=== PATIENT | male | born 1960 | race Caucasian/White ===

== ENCOUNTER 2016-08-30 17:37 | Emergency (ER) | payer MEDICARE, BC ==
[~2016-08-30] VITALS: Ht 172.7 cm; Wt 69.0 kg
[~2016-08-30 17:37] MED LIST: AMIO200T2 PO; ASPI-557 PO; ATOR40TA64 PO; CLOP75TA33 PO; LISI2.5T2 PO; METH10TA4 PO; METO-482 PO; MULT-587 PO; PANT40TA27 PO; SULI150T PO
[2016-08-30 17:38] VITALS: BP 155/91; PULSE 77; RESP 16; TEMP 98.1; O2SAT 98; Ht 172.7 cm; Wt 69.0 kg
--- OUTSIDE RECORDS SUMMARY | 2016-08-30 17:43 | XMS REPORT | Continuity of Care Document ---
Author Author [facility] Organization [facility] Address Unknown Phone Unavailable Support Name Relationship Address Phone BETHANY ARANDA MD Caregiver [address] [place] [address] [place] [address] Unavailable MARTÍNEZ RANDHAWA Next Of Kin [address] [facility] [address] [place] [address] Insurance Providers Guarantor Gia Randhawa Jr Address [address] [facility] [address] [place] [address] Email DENIED/NO TO [facility] Policy Number [id number] Subscriber's Name Gia Randhawa Jr Relationship 18 Self Chief Complaint and Reason for Visit Chief Complaint GI Bleed Reason for Visit [id number] Problems Active Problems Medical Problem Onset Date Status Acute upper GI bleed Unknown Acute Medications Current Home Medications Medication Dose Units Route Directions Days Qty Instructions Start Date Aspirin 325 Mg Tablet 325 Mg Oral Daily 12/29/15 Methylphenidate Hcl (Ritalin) 10 Mg Tablet 10 Mg Oral As Needed 12/29/15 Multivitamin (Men's Multi-Vitamin) 1 Each Tablet 1 Tab Oral Daily 12/29/15 Sulindac 150 Mg Tablet 150 Mg Oral As Needed 12/29/15 Social History Social History Problem Response Recorded Date/Time Onset Date Status Tobacco Usage smoke 12/29/2015 11:02am Not Applicable Not Applicable Query Response Start Date Stop Date Smoking Status Current every day smoker Hospital Discharge Instructions No hospital discharge instructions. Plan of Care Discharge Date 12/29/15 12:59pm Disposition 43 TO [facility] Condition at Discharge Stable Instructions/Education Provided Gastrointestinal Bleeding Prescriptions See Medication Section Functional Status No functional status results. Allergies, Adverse Reactions, Alerts Allergen Type Severity Reaction Status Last Updated Cephalexin Allergy Unknown Active 12/29/15 Immunizations No immunization records. Vital Signs Acute Vital Signs Vital Response Date/Time Temperature (Fahrenheit) 97.9 deg F (96.8 - 99.1) 12/29/2015 12:59pm Temperature (Calculated Celsius) 36.38162 degrees C (36.0 - 37.3) 12/29/2015 12:59pm Pulse Rate (adult) 92 bpm (60 - 100) 12/29/2015 12:59pm Respiratory Rate 14 breaths/min (10 - 20) 12/29/2015 12:59pm O2 Sat by Pulse Oximetry 97 % (90 - 100) 12/29/2015 12:59pm Blood Pressure 123/78 mm Hg 12/29/2015 12:59pm Height (Feet) 5 feet 12/29/2015 10:12am Height (Inches) 8.00 inches 12/29/2015 10:12am Weight (Kilograms) 98.500 kg 12/29/2015 10:12am Body Mass Index (BMI) 33.0 12/29/2015 10:12am Results Laboratory Results Test Name Result Units Flags Reference Collection Date/Time Result Date/ Time Comments White Blood Count 14.8 T/MM3 H 4.5-11.0 12/29/2015 10:56am 12/29/2015 11 :06am Red Blood Count 4.62 M/MM3 4.50-5.90 12/29/2015 10:56am 12/29/2015 11: 06am Hemoglobin 14.2 GM/DL 13.5-17.5 12/29/2015 10:56am 12/29/2015 11:06am Hematocrit 42.9 % 41-53 12/29/2015 10:56am 12/29/2015 11:06am Mean Corpuscular Volume 92.9 UM3 80-100 12/29/2015 10:56am 12/29/2015 11:06am Mean Corpuscular Hemoglobin 30.7 UUG 26-34 12/29/2015 10:56am 2015 11:06am Mean Corpuscular Hemoglobin Concent 33.1 GM/DL 31-37 12/29/2015 10:56am 12/29/2015 11:06am RDW Standard Deviation 45.8 FL 36.9-50.2 12/29/2015 10:56am 12/29/2015 11:06am Platelet Count 371 T/MM3 130-400 12/29/2015 10:56am 12/29/2015 11:06am Mean Platelet Volume 11.0 UM3 9.4-12.4 12/29/2015 10:56am 12/29/2015 11 :06am Neutrophils (%) (Auto) 76.8 % H 33-66 12/29/2015 10:56am 12/29/2015 11: 06am Lymphocytes (%) (Auto) 14.2 % L 23-45 12/29/2015 10:56am 12/29/2015 11: 06am Monocytes (%) (Auto) 5.3 % 0-9.0 12/29/2015 10:56am 12/29/2015 11:06am Eosinophils (%) (Auto) 2.9 % 0-4 12/29/2015 10:56am 12/29/2015 11:06am Basophils (%) (Auto) 0.5 % 0-2 12/29/2015 10:56am 12/29/2015 11:06am Immature Granulocyte % (Auto) 0.3 % 0.0-0.5 12/29/2015 10:56am 2015 11:06am Absolute Neutrophils (auto) 11.4 T/MM3 H 1.8-7.7 12/29/2015 10:56am 11:06am Absolute Lymphocytes (auto) 2.1 T/MM3 1-4.8 12/29/2015 10:56am 2015 11:06am Absolute Monocytes (auto) 0.8 T/MM3 0-0.8 12/29/2015 10:56am 2015 11:06am Absolute Eosinophils (auto) 0.4 T/MM3 0-0.5 12/29/2015 10:56am 2015 11:06am Absolute Basophils (auto) 0.1 T/MM3 0-0.2 12/29/2015 10:56am 2015 11:06am Absolute Immature Granulocyte (auto 0.05 T/MM3 H 0.00-0.03 12/29/2015 10: 56am 12/29/2015 11:06am Prothromb Time International Ratio 0.95 L 0.99-1.21 12/29/2015 10:56am 12/29/2015 11:14am THERAPUTIC RANGE=2.00-3.00 FOR ANTI-THROMBOSIS THERAPUTIC RANGE=2.50-3.50 FOR IMPLANTED VALVE Activated Partial Thromboplast Time 29.2 SEC 24-36 12/29/2015 10:56am 12/29/2015 11:14am Icterus Index < 2 0-7 12/29/2015 10:56am 12/29/2015 11:18am Chemistry Specimen Hemolysis < 15 0-25 12/29/2015 10:56am 12/29/2015 11:18am 0-25: Specimen Exhibited No Hemolysis. Turbidity < 20 0-20 12/29/2015 10:56am 12/29/2015 11:18am Sodium Level 146 MEQ/L H 134-144 12/29/2015 10:56am 12/29/2015 11:18am Potassium Level 4.7 MEQ/L 3.6-5 12/29/2015 10:56am 12/29/2015 11:18am Chloride Level 111 MEQ/L H 98-107 12/29/2015 10:56am 12/29/2015 11:18am Carbon Dioxide Level 24 MEQ/L 22-30 12/29/2015 10:56am 12/29/2015 11: 18am Anion Gap 11 MEQ/L 5-15 12/29/2015 10:56am 12/29/2015 11:18am Blood Urea Nitrogen 33.0 MG/DL H 9-20 12/29/2015 10:56am 12/29/2015 11: 18am Creatinine 1.0 MG/DL 0.8-1.5 12/29/2015 10:56am 12/29/2015 11:18am BUN/Creatinine Ratio 33 RATIO H 6-26 12/29/2015 10:56am 12/29/2015 11: 18am Glomerular Filtration Rate Calc 78 12/29/2015 10:56am 12/29/2015 11 :18am Glucose Level 123 MG/DL H 75-110 12/29/2015 10:56am 12/29/2015 11:18am Calculated Osmolality 289 MOSM/KG H 261-280 12/29/2015 10:56am 2015 11:18am Calcium Level 9.6 MG/DL 8.4-10.2 12/29/2015 10:56am 12/29/2015 11:18am Lipase 38 U/L 23-300 12/29/2015 10:56am 12/29/2015 11:18am Procedures No known history of procedures. Encounters Encounter Location Arrival/Admit Date Discharge/Depart Date Attending Provider Registered Emergency Room [facility] 12/29/15 10:12am BETHANY ARANDA MD Recent Diagnosis
--- OUTSIDE RECORDS SUMMARY | 2016-08-30 17:43 | XMS REPORT | Continuity of Care Document ---
Author Author [facility] Organization [facility] Address Unknown Phone Unavailable Support Name Relationship Address Phone DENNYS BEAR MD Caregiver [address] [place] [address] Unavailable MARTÍNEZ RANDHAWA Next Of Kin [address] [facility] [address] [place], [place] [id number] Insurance Providers Guarantor Gia Randhawa Jr Address [address] [facility] [address] [place] [address] Email DENIED/NO TO [facility] Policy Number [id number] Subscriber's Name Gia Randhawa Jr Relationship 18 Self Advance Directives Directive Response Recorded Date/Time Advanced Directives Type Unable to Obtain 12/31/15 11:52pm Chief Complaint and Reason for Visit Chief Complaint Chest Pain Reason for Visit [id number] Problems Past Problems Medical Problem Onset Date Acute upper GI bleed Unknown ST elevation myocardial infarction (STEMI) of inferior wall Unknown Medications Current Home Medications Medication Dose Units Route Directions Days Qty Instructions Start Date Aspirin 325 Mg Tablet 325 Mg Oral Daily 12/29/15 Methylphenidate Hcl (Ritalin) 10 Mg Tablet 10 Mg Oral As Needed 12/29/15 Multivitamin (Men's Multi-Vitamin) 1 Each Tablet 1 Tab Oral Daily 12/29/15 Pantoprazole Sodium 40 Mg Tablet.dr 40 Mg Oral Before Meals Twice A Day Take 1 tablet, by mouth, 2 times a day, before breakfast and dinner. 12/31 Sulindac 150 Mg Tablet 150 Mg Oral As Needed 12/29/15 Social History Social History Problem Response Recorded Date/Time Onset Date Status Tobacco Usage smoke 12/29/2015 11:02am Not Applicable Not Applicable Query Response Start Date Stop Date Smoking Status Current every day smoker Hospital Discharge Instructions No hospital discharge instructions. Plan of Care Discharge Date 01/01/16 12:22am Disposition 02 TO [facility] Condition at Discharge Improved Prescriptions See Medication Section Functional Status No functional status results. Allergies, Adverse Reactions, Alerts Allergen Type Severity Reaction Status Last Updated Cephalexin Allergy Unknown Active 12/29/15 Immunizations No immunization records. Vital Signs Acute Vital Signs Vital Response Date/Time Temperature (Fahrenheit) 97.2 deg F (96.8 - 99.1) 01/01/2016 12:22am Temperature (Calculated Celsius) 36.67740 degrees C (36.0 - 37.3) 01/01/2016 12:22am Pulse Rate (adult) 78 bpm (60 - 100) 01/01/2016 12:22am Respiratory Rate 43 breaths/min (10 - 20) 01/01/2016 12:22am O2 Sat by Pulse Oximetry 100 % (90 - 100) 01/01/2016 12:22am Oxygen Flow Rate 4.00 L/min 01/01/2016 12:22am Blood Pressure 182/103 mm Hg 01/01/2016 12:22am Height (Feet) 5 feet 12/31/2015 11:52pm Height (Inches) 8.00 inches 12/31/2015 11:52pm Weight (Kilograms) 102.100 kg 12/31/2015 11:52pm Body Mass Index (BMI) 34.0 12/31/2015 11:52pm Results Laboratory Results Test Name Result Units Flags Reference Collection Date/Time Result Date/ Time Comments Activated Partial Thromboplast Time 29.2 SEC 24-36 12/29/2015 10:56am 12/29/2015 11:14am Lipase 38 U/L 23-300 12/29/2015 10:56am 12/29/2015 11:18am White Blood Count 14.1 T/MM3 H 4.5-11.0 01/01/2016 12:01am 01/01/2016 12 :23am Red Blood Count 3.80 M/MM3 L 4.50-5.90 01/01/2016 12:01am 01/01/2016 12: 23am Hemoglobin 11.8 GM/DL D L 13.5-17.5 01/01/2016 12:0101/01/2016 12: 23am Hematocrit 34.6 % D L 41-53 01/01/2016 12:01am 01/01/2016 12:23am Mean Corpuscular Volume 91.1 UM3 80-100 01/01/2016 12:01am 01/01/2016 12:23am Mean Corpuscular Hemoglobin 31.1 UUG 26-34 01/01/2016 12:2015 12:23am Mean Corpuscular Hemoglobin Concent 34.1 GM/DL 31-37 01/01/2016 12:01/01/2016 12:23am RDW Standard Deviation 43.0 FL 36.9-50.2 01/01/2016 12:01/01/2016 12:23am Platelet Count 407 T/MM3 H 130-400 01/01/2016 12:01/01/2016 12: 23am Mean Platelet Volume 10.9 UM3 9.4-12.4 01/01/2016 12:01/01/2016 12 :23am Neutrophils (%) (Auto) 52.4 % 33-66 01/01/2016 12:01/01/2016 12: 23am Lymphocytes (%) (Auto) 32.9 % 23-45 01/01/2016 12:01/01/2016 12: 23am Monocytes (%) (Auto) 7.4 % 0-9.0 01/01/2016 12:01/01/2016 12:23am Eosinophils (%) (Auto) 6.3 % H 0-4 01/01/2016 12:01/01/2016 12: 23am Basophils (%) (Auto) 0.8 % 0-2 01/01/2016 12:01/01/2016 12:23am Immature Granulocyte % (Auto) 0.2 % 0.0-0.5 01/01/2016 12:2015 12:23am Absolute Neutrophils (auto) 7.4 T/MM3 1.8-7.7 01/01/2016 12:2015 12:23am Absolute Lymphocytes (auto) 4.7 T/MM3 1-4.8 01/01/2016 12:2015 12:23am Absolute Monocytes (auto) 1.1 T/MM3 H 0-0.8 01/01/2016 12:2015 12:23am Absolute Eosinophils (auto) 0.9 T/MM3 H 0-0.5 01/01/2016 12:2015 12:23am Absolute Basophils (auto) 0.1 T/MM3 0-0.2 01/01/2016 12:012015 12:23am Absolute Immature Granulocyte (auto 0.03 T/MM3 0.00-0.03 01/01/2016 12: 0101/01/2016 12:23am Prothromb Time International Ratio 0.97 L 0.99-1.21 01/01/2016 12:01/01/2016 12:10am THERAPUTIC RANGE=2.00-3.00 FOR ANTI-THROMBOSIS THERAPUTIC RANGE=2.50-3.50 FOR IMPLANTED VALVE Icterus Index < 2 0-7 01/01/2016 12:0101/01/2016 12:14am Chemistry Specimen Hemolysis 17 0-25 01/01/2016 12:01/01/2016 12 :14am 0-25: Specimen Exhibited No Hemolysis. Turbidity < 20 0-20 01/01/2016 12:0101/01/2016 12:14am Sodium Level 141 MEQ/L 134-144 01/01/2016 12:01/01/2016 12:14am Potassium Level 3.4 MEQ/L D L 3.6-5 01/01/2016 12:0101/01/2016 12: 23am Chloride Level 105 MEQ/L 98-107 01/01/2016 12:01/01/2016 12:14am Carbon Dioxide Level 20 MEQ/L L 22-30 01/01/2016 12:01/01/2016 12: 14am Anion Gap 16 MEQ/L H 5-15 01/01/2016 12:01/01/2016 12:14am Blood Urea Nitrogen 18.0 MG/DL 9-01/01/2016 12:0101/01/2016 12: 14am Creatinine 1.0 MG/DL 0.8-1.5 01/01/2016 12:0101/01/2016 12:14am BUN/Creatinine Ratio 18 RATIO 6-26 01/01/2016 12:0101/01/2016 12: 14am Glomerular Filtration Rate Calc 78 01/01/2016 12:0101/01/2016 12 :14am Glucose Level 130 MG/DL H 75-110 01/01/2016 12:01/01/2016 12:14am Calculated Osmolality 275 MOSM/KG 261-280 01/01/2016 12:2015 12:14am Calcium Level 9.5 MG/DL 8.4-10.2 01/01/2016 12:01/01/2016 12:14am Total Bilirubin 0.60 MG/DL 0.20-1.30 01/01/2016 12:01/01/2016 12: 14am Alkaline Phosphatase 78 U/L 38-126 01/01/2016 12:01/01/2016 12: 14am Total Protein 7.3 G/DL 6.3-8.2 01/01/2016 12:01/01/2016 12:14am Albumin 4.4 G/DL 3.5-5.0 01/01/2016 12:01/01/2016 12:14am Globulin 2.9 G/DL 2.4-3.6 01/01/2016 12:01/01/2016 12:14am Albumin/Globulin Ratio 1.5 RATIO 1.1-2.2 01/01/2016 12:01/01/2016 12:14am Aspartate Amino Transf (AST/SGOT) 25 U/L 17-59 01/01/2016 12:12/31 12:14am Alanine Aminotransferase (ALT/SGPT) 27 U/L 21-72 01/01/2016 12: 12:14am Troponin I 0.045 ng/ml 0-0.12 01/01/2016 12:01/01/2016 12:25am Troponin values with a difference of 55% increase from orginal troponin value represent a true biological DELTA value. (%increase Calc=Orginal Troponin value, divided by subsequent Troponin value, multiplied by 100) Procedures No known history of procedures. Encounters Encounter Location Arrival/Admit Date Discharge/Depart Date Attending Provider Departed Emergency Room [facility] 12/31/15 11:50pm 01/01/16 12: 22am DENNYS BEAR MD Departed Emergency Room [facility] 12/29/15 10:12am 12/29/15 12: 59pm BETHANY ARANDA MD Recent Diagnosis
--- OUTSIDE RECORDS SUMMARY | 2016-08-30 17:43 | XMS REPORT | Referral Summary ---
Author Author [facility] Organization [facility] Address Unknown Phone Unavailable Care Team Providers Care Coding Support Specialist Name Role Phone Doris Lucero Primary Care Physician [phone] Encounter [facility]ONAK [id number] Date(s): 01/01/16 - 01/03/16 [facility] [address] [place] [address] Discharge Disposition: 01-Home or Self Care Attending Physician: Steven Godwin MD Admitting Physician: Steven Godwin MD Vital Signs Most recent to 1 oldest [Reference Range]: Temperature Temporal 37.3 degC Artery [36.3-37.8 (01/03/16 4:00 PM) degC] Peripheral Pulse 77 bpm Rate [60-100 bpm] (01/03/16 9:03 AM) Heart Rate Monitored 72 bpm [60-100 bpm] (01/03/16 4:00 PM) Respiratory Rate 22 br/min [14-20 br/min] *HI* (01/03/16 4:00 PM) Blood Pressure 125/77 mmHg [90-140/60-90 mmHg] (01/03/16 4:00 PM) Mean Arterial 96 mmHg Pressure, Cuff (01/03/16 4:00 PM) SpO2 96 % (01/03/16 4:00 PM) Problem List Condition Effective Dates Status Health Status Informant Other acquired Active deformities of ankle and foot(Confirmed) Acute Active pain(Confirmed) Cardiac Active disorder(Confirmed)1 Chronic pain Active syndrome (disorder)(Confirmed ) Degeneration of Active lumbar or lumbosacral intervertebral disc(Confirmed) Lumbar disc Active displacement without myelopathy(Confirmed ) Knowledge Active deficit(Confirmed)2 Lumbago(Confirmed) Active Lumbosacral Active neuritis(Confirmed) Lumbosacral Active spondylosis without myelopathy(Confirmed ) DJD of the Active knees(Confirmed) Overweight(Confirmed Active ) Post-laminectomy Active syndrome (disorder)(Confirmed ) Spinal stenosis of Active lumbar region with neurogenic claudication(Confirm ed) 1Problem added automatically by system based on initiation of Cardiac Output/ Ineffective Cardiac Perfusion Plan of Care 2Problem added automatically by system based on initiation of Knowledge Deficit Plan of Care Allergies, Adverse Reactions, Alerts Substance Reaction Severity Status cephalexin Active Medications amiodarone 200 mg oral tablet 200 mg 1 tabs, Oral, Daily, # 30 tabs, 0 Refill(s), other reason (Rx) Start Date: 01/03/16 Status: Ordered aspirin 81 mg oral delayed release tablet 81 mg 1 tabs, Oral, Daily, 0 Refill(s) Start Date: 01/03/16 Status: Ordered Lipitor 40 mg oral tablet 40 mg 1 tabs, Oral, qAM, # 30 tabs, 0 Refill(s), other reason (Rx) Start Date: 01/03/16 Status: Ordered lisinopril 2.5 mg oral tablet 2.5 mg 1 tabs, Oral, Bedtime (once a day), # 30 tabs, 6 Refill(s), other reason (Rx) Start Date: 01/03/16 Status: Ordered Lopressor 50 mg oral tablet 25 mg 0.5 tabs, Oral, BID, # 30 tabs, 0 Refill(s), other reason (Rx) Start Date: 01/03/16 Status: Ordered Nitrostat 0.4 mg sublingual tablet 0.4 mg 1 tabs, SubLingual, q5min, as needed for chest pain, not to exceed 3 doses/15 min--if pain persists, seek medical attention, # 100 tabs, 0 Refill(s) Start Date: 01/01/16 Status: Ordered pantoprazole 40 mg, Oral, BID, 0 Refill(s) Start Date: 01/01/16 Status: Ordered Plavix 75 mg oral tablet 75 mg 1 tabs, Oral, Daily, # 30 tabs, 0 Refill(s), other reason (Rx) Start Date: 01/03/16 Status: Ordered Results Hematology Most recent to 1 oldest [Reference Range]: WBC [4.8-10.8 10.9 10*3/uL 10*3/uL] *HI* (01/03/16 4:59 AM) RBC [4.60-6.20] 3.31 *LOW* (01/03/16 4:59 AM) Hgb [14.0-18.0 10.2 gm/dL gm/dL] *LOW* (01/03/16 4:59 AM) Hct [42.0-52.0 %] 31.4 % *LOW* (01/03/16 4:59 AM) MCV [82.0-99.0 fL] 94.9 fL (01/03/16 4:59 AM) MCH [27.0-32.0 pg] 30.8 pg (01/03/16 4:59 AM) MCHC [32.0-36.0 32.5 gm/dL gm/dL] (01/03/16 4:59 AM) RDW [11.5-14.5 %] 13.5 % (01/03/16 4:59 AM) Platelet [150-400 315 10*3/uL 10*3/uL] (01/03/16 4:59 AM) MPV [9.4-12.3 fL] 11.4 fL (01/03/16 4:59 AM) Chemistry Most recent to 1 oldest [Reference Range]: Sodium Lvl [136-144 136 mEq/L mEq/L] (01/03/16 4:59 AM) Potassium Lvl 3.9 mEq/L [3.6-5.1 mEq/L] (01/03/16 4:59 AM) Chloride [99-109 104 mEq/L mEq/L] (01/03/16 4:59 AM) CO2 [22-32 mEq/L] 22 mEq/L (01/03/16 4:59 AM) AGAP [3-20] 10 (01/03/16 4:59 AM) BUN [4-20 mg/dL] 13 mg/dL (01/03/16 4:59 AM) Glucose Lvl [70-100 98 mg/dL mg/dL] (01/03/16 4:59 AM) Creatinine Lvl 1.05 mg/dL [0.64-1.27 mg/dL] (01/03/16 4:59 AM) eGFR [>60] >60 1 (01/03/16 4:59 AM) Calcium Lvl 8.8 mg/dL [8.6-10.0 mg/dL] (01/03/16 4:59 AM) Albumin Lvl [3.5-4.8 3.3 gm/dL gm/dL] *LOW* (01/02/16 12:45 PM) Total Protein 6.3 gm/dL [6.1-7.9 gm/dL] (01/02/16 12:45 PM) ALT [17-63 U/L] 34 U/L (01/02/16 12:45 PM) AST [15-41 U/L] 68 U/L *HI* (01/02/16 12:45 PM) Alk Phos [26-104 54 U/L U/L] (01/02/16 12:45 PM) Bili Total [0.2-1.2 0.6 mg/dL 2 mg/dL] (01/02/16 12:45 PM) Bili Direct [0.0-0.2 0.1 mg/dL mg/dL] (01/02/16 12:45 PM) Bili Indirect 0.5 mg/dL [0.0-1.0 mg/dL] (01/02/16 12:45 PM) Magnesium Lvl 2.1 mg/dL [1.8-2.5 mg/dL] (01/03/16 4:59 AM) BNP [0-99 pg/mL] 24 pg/mL (01/01/16 3:10 AM) Troponin [<0.06 12.08 ng/mL 3 ng/mL] *HHI* (01/02/16 12:45 PM) Lipase Lvl [8-48 17 U/L U/L] (01/02/16 12:45 PM) Blood Glucose, 122 mg/dL Capillary [70-100 *HI* mg/dL] (01/02/16 4:44 PM) Chol [0-200 mg/dL] 157 mg/dL (01/02/16 3:20 AM) Trig [0-150 mg/dL] 161 mg/dL *HI* (01/02/16 3:20 AM) HDL [>40 mg/dL] 31 mg/dL *ABN* (01/02/16 3:20 AM) LDL [0-100 mg/dL] 94 mg/dL (01/02/16 3:20 AM) VLDL Cholesterol 32 mg/dL [0-30 mg/dL] *HI* (01/02/16 3:20 AM) Cardiac Risk 5.1 [0.0-5.7] (01/02/16 3:20 AM) TSH with Reflex Free 0.82 T4 [0.35-5.50] (01/01/16 3:10 AM) Hgb A1c [4.1-5.6 %] 5.2 % (01/01/16 3:10 AM) eAvg Glucose 102.5 mg/dL (01/01/16 3:10 AM) 1Result Comment: Multiply eGFR results by 1.21 for race. 2Result Comment: Naproxen, specifically the metabolite O-desmethylnaproxen, may cause spurious elevation in Total Bilirubin levels. 3Result Comment: Critical value called, and read-back verified. Called to Soni Morrow RN ([facility]) 01/02/2016 13:34 Immunizations No data available for this section Procedures Procedure Date Related Diagnosis Body Site Angioplasty or Stent Percutaneous 01/01/16 Transluminal Coronary1 Cardioversion2 01/01/16 Catheterization Left Heart with Coronary 01/01/16 Angiography (Right, Groin)3 Spinal cord stimulator implantation 03/04/05 Arthroscopies both knees Back surgery x 3 L4-5 L5-S1 1auto-populated from documented surgical case 2auto-populated from documented surgical case 3auto-populated from documented surgical case Social History Social History Type Response Smoking Status Current every day smoker; Type: Cigarettes; Tobacco use per day: 1 Pack; Number of years: 35 Assessment and Plan No data available for this section
--- OUTSIDE RECORDS SUMMARY | 2016-08-30 17:43 | XMS REPORT | Continuity of Care Document ---
Author Author [facility] Organization [facility] Address Unknown Phone Unavailable Support Name Relationship Address Phone DENNYS BEAR MD Caregiver [address] [place] [address] Unavailable MARTÍNEZ RANDHAWA Next Of Kin [address] [place], [place] [id number] Insurance Providers Guarantor Gia Randhawa Jr Address [address] [place] [address] Email DENIED/NO TO [facility] Policy Number [id number] Subscriber's Name Gia Randhawa Jr Relationship 20 Self Advance Directives Directive Response Recorded Date/Time Advanced Directives Type None 01/04/16 10:43pm Chief Complaint and Reason for Visit Chief Complaint Upper Extremity Pain Reason for Visit Superficial thrombophlebitis Problems Active Problems Medical Problem Onset Date Status GI bleed Unknown Past Problems Medical Problem Onset Date Acute upper GI bleed Unknown ST elevation myocardial infarction (STEMI) of inferior wall Unknown Superficial thrombophlebitis Unknown Medications Current Home Medications Medication Dose Units Route Directions Days Qty Instructions Start Date Amiodarone Hcl 200 Mg Tablet 200 Mg Oral Daily 01/05/16 Aspirin (Aspir 81) 81 Mg Tablet.dr 1 Tab Oral Daily 30 Tablet 01/04 Atorvastatin Calcium 40 Mg Tablet 1 Tab Oral Daily 01/05/16 Clopidogrel Bisulfate (Clopidogrel) 75 Mg Tablet 1 Tab Oral Daily 01/05/16 Lisinopril 2.5 Mg Tablet 2.5 Mg Oral Daily for Hypertension 01/04 Methylphenidate Hcl (Ritalin) 10 Mg Tablet 10 Mg Oral As Needed 12/29/15 Metoprolol Tartrate (Lopressor) 50 Mg Tablet 0.5 Tab Oral Twice A Day 01/05/16 Multivitamin (Men's Multi-Vitamin) 1 Each Tablet 1 Tab Oral Daily 12/29/15 Pantoprazole Sodium 40 Mg Tablet.dr 40 Mg Oral Before Meals Twice A Day Take 1 tablet, by mouth, 2 times a day, before breakfast and dinner. 12/31 Sulindac 150 Mg Tablet 150 Mg Oral As Needed 12/29/15 Past Home Medications Medication Directions Ordered Status Aspirin 325 Mg Tablet, 325 Mg Oral Daily 12/29/15 Discontinued Social History Social History Problem Response Recorded Date/Time Onset Date Status Tobacco Usage smoke 12/29/2015 11:02am Not Applicable Not Applicable Query Response Start Date Stop Date Smoking Status Current every day smoker Hospital Discharge Instructions No hospital discharge instructions. Plan of Care Discharge Date 01/05/16 12:46am Disposition 01 DISCHARGED HOME, SELF-CARE Condition at Discharge Improved Instructions/Education Provided DI for Superficial Thrombophlebitis Prescriptions See Medication Section Additional Instructions/Education Use warm packs as needed several times daily Tylenol as needed for pain Return at any time for any worsening Care Plan and Goals Physician Care Plan Problem: Superficial thrombophlebitis Goal: Follow up with primary care provider Instructions: Take medications and follow care plan as discussed/written Use warm packs as needed several times daily Tylenol as needed for pain Return at any time for any worsening Functional Status No functional status results. Allergies, Adverse Reactions, Alerts Allergen Type Severity Reaction Status Last Updated Cephalexin Allergy Unknown Active 01/04/16 Immunizations Query Response on File Recorded Date/Time Tdap Vaccine Hx UNKNOWN 01/04/16 10:49pm Vital Signs Acute Vital Signs Vital Response Date/Time Temperature (Fahrenheit) 98.5 deg F (96.8 - 99.1) 01/04/2016 10:43pm Temperature (Calculated Celsius) 36.75492 degrees C (36.0 - 37.3) 01/04/2016 10:43pm Pulse Rate (adult) 74 bpm (60 - 100) 01/05/2016 12:43am Respiratory Rate 15 breaths/min (10 - 20) 01/05/2016 12:43am O2 Sat by Pulse Oximetry 97 % (90 - 100) 01/05/2016 12:43am Oxygen Flow Rate 4.00 L/min 01/01/2016 12:22am Blood Pressure 111/64 mm Hg 01/05/2016 12:43am Blood Pressure 111/64 mm Hg 01/05/2016 12:43am Height (Feet) 5 feet 01/04/2016 10:43pm Height (Inches) 8.00 inches 01/04/2016 10:43pm Weight (Kilograms) 99.900 kg 01/04/2016 10:43pm Body Mass Index (BMI) 33.0 01/04/2016 10:43pm Results Laboratory Results Test Name Result Units Flags Reference Collection Date/Time Result Date/ Time Comments Activated Partial Thromboplast Time 29.2 SEC 24-36 12/29/2015 10:56am 12/29/2015 11:14am Lipase 38 U/L 23-300 12/29/2015 10:56am 12/29/2015 11:18am Prothromb Time International Ratio 0.97 L 0.99-1.21 01/01/2016 12:01am 01/01/2016 12:10am THERAPUTIC RANGE=2.00-3.00 FOR ANTI-THROMBOSIS THERAPUTIC RANGE=2.50-3.50 FOR IMPLANTED VALVE Troponin I 0.045 ng/ml 0-0.12 01/01/2016 12:01am 01/01/2016 12:25am Troponin values with a difference of 55% increase from orginal troponin value represent a true biological DELTA value. (%increase Calc=Orginal Troponin value, divided by subsequent Troponin value, multiplied by 100) White Blood Count 11.8 T/MM3 H 4.5-11.0 01/04/2016 11:15pm 01/04/2016 11 :22pm Red Blood Count 3.17 M/MM3 L 4.50-5.90 01/04/2016 11:15pm 01/04/2016 11: 22pm Hemoglobin 9.7 GM/DL L 13.5-17.5 01/04/2016 11:1501/04/2016 11:22pm Hematocrit 29.3 % L 41-53 01/04/2016 11:1501/04/2016 11:22pm Mean Corpuscular Volume 92.4 UM3 80-100 01/04/2016 11:15pm 01/04/2016 11:22pm Mean Corpuscular Hemoglobin 30.6 UUG 26-34 01/04/2016 11:15pm 2015 11:22pm Mean Corpuscular Hemoglobin Concent 33.1 GM/DL 31-37 01/04/2016 11:15pm 01/04/2016 11:22pm RDW Standard Deviation 41.5 FL 36.9-50.2 01/04/2016 11:1501/04/2016 11:22pm Platelet Count 391 T/MM3 130-400 01/04/2016 11:1501/04/2016 11:22pm Mean Platelet Volume 11.1 UM3 9.4-12.4 01/04/2016 11:15pm 01/04/2016 11 :22pm Neutrophils (%) (Auto) 53.4 % 33-66 01/04/2016 11:15pm 01/04/2016 11: 22pm Lymphocytes (%) (Auto) 28.1 % 23-45 01/04/2016 11:1501/04/2016 11: 22pm Monocytes (%) (Auto) 9.3 % H 0-9.0 01/04/2016 11:1501/04/2016 11: 22pm Eosinophils (%) (Auto) 7.7 % H 0-4 01/04/2016 11:1501/04/2016 11: 22pm Basophils (%) (Auto) 1.2 % 0-2 01/04/2016 11:01/04/2016 11:22pm Immature Granulocyte % (Auto) 0.3 % 0.0-0.5 01/04/2016 11:152015 11:22pm Absolute Neutrophils (auto) 6.3 T/MM3 1.8-7.7 01/04/2016 11:2015 11:22pm Absolute Lymphocytes (auto) 3.3 T/MM3 1-4.8 01/04/2016 11:2015 11:22pm Absolute Monocytes (auto) 1.1 T/MM3 H 0-0.8 01/04/2016 11:2015 11:22pm Absolute Eosinophils (auto) 0.9 T/MM3 H 0-0.5 01/04/2016 11:152015 11:22pm Absolute Basophils (auto) 0.1 T/MM3 0-0.2 01/04/2016 11:2015 11:22pm Absolute Immature Granulocyte (auto 0.03 T/MM3 0.00-0.03 01/04/2016 11: 15pm 01/04/2016 11:22pm Icterus Index < 2 0-7 01/04/2016 11:1501/04/2016 11:31pm Chemistry Specimen Hemolysis < 15 0-25 01/04/2016 11:01/04/2016 11:31pm 0-25: Specimen Exhibited No Hemolysis. Turbidity < 20 0-20 01/04/2016 11:01/04/2016 11:31pm Sodium Level 138 MEQ/L 134-144 01/04/2016 11:01/04/2016 11:31pm Potassium Level 3.8 MEQ/L 3.6-5 01/04/2016 11:01/04/2016 11:31pm Chloride Level 101 MEQ/L 98-107 01/04/2016 11:01/04/2016 11:31pm Carbon Dioxide Level 23 MEQ/L 22-30 01/04/2016 11:01/04/2016 11: 31pm Anion Gap 14 MEQ/L 5-15 01/04/2016 11:01/04/2016 11:31pm Blood Urea Nitrogen 18.0 MG/DL 9-01/04/2016 11:01/04/2016 11: 31pm Creatinine 1.1 MG/DL 0.8-1.5 01/04/2016 11:01/04/2016 11:31pm BUN/Creatinine Ratio 16 RATIO 6-01/04/2016 11:01/04/2016 11: 31pm Glomerular Filtration Rate Calc 70 01/04/2016 11:01/04/2016 11 :31pm Glucose Level 100 MG/DL 75-110 01/04/2016 11:01/04/2016 11:31pm Calculated Osmolality 268 MOSM/KG 261-280 01/04/2016 11:2015 11:31pm Calcium Level 9.3 MG/DL 8.4-10.2 01/04/2016 11:01/04/2016 11:31pm Total Bilirubin 0.60 MG/DL 0.20-1.30 01/04/2016 11:01/04/2016 11: 31pm Alkaline Phosphatase 82 U/L 38-126 01/04/2016 11:01/04/2016 11: 31pm Total Protein 7.2 G/DL 6.3-8.2 01/04/2016 11:01/04/2016 11:31pm Albumin 4.0 G/DL 3.5-5.0 01/04/2016 11:15pm 01/04/2016 11:31pm Globulin 3.2 G/DL 2.4-3.6 01/04/2016 11:15pm 01/04/2016 11:31pm Albumin/Globulin Ratio 1.3 RATIO 1.1-2.2 01/04/2016 11:15pm 01/04/2016 11:31pm Aspartate Amino Transf (AST/SGOT) 35 U/L 17-59 01/04/2016 11:15pm 01/03 11:31pm Alanine Aminotransferase (ALT/SGPT) 44 U/L 21-72 01/04/2016 11:15pm 11:31pm Procedures Procedure Status Date Provider(s) ROUTINE VENIPUNCTURE Completed 12/29/15 METABOLIC PANEL TOTAL CA Completed 12/29/15 ASSAY OF LIPASE Completed 12/29/15 COMPLETE CBC W/AUTO DIFF WBC Completed 12/29/15 PROTHROMBIN TIME Completed 12/29/15 THROMBOPLASTIN TIME PARTIAL Completed 12/29/15 HYDRATE IV INFUSION ADD-ON Completed 12/29/15 THER/PROPH/DIAG INJ IV PUSH Completed 12/29/15 TX/PRO/DX INJ NEW DRUG ADDON Completed 12/29/15 EMERGENCY DEPT VISIT Completed 12/29/15 303651"INJECTION, PANTOPRAZOLE SODIUM, PER VIAL" Completed 12/29/15 924180"INJECTION, ONDANSETRON HYDROCHLORIDE, PER 1 MG" Completed 12/29/15 008703"INFUSION, NORMAL SALINE SOLUTION , 1000 CC" Completed 12/29/15 CHEST X-RAY 1 VIEW FRONTAL Completed 12/31/15 COMPREHEN METABOLIC PANEL Completed 12/31/15 ASSAY OF TROPONIN QUANT Completed 12/31/15 COMPLETE CBC W/AUTO DIFF WBC Completed 12/31/15 PROTHROMBIN TIME Completed 12/31/15 ELECTROCARDIOGRAM TRACING Completed 12/31/15 THER/PROPH/DIAG INJ IV PUSH Completed 12/31/15 TX/PRO/DX INJ NEW DRUG ADDON Completed 12/31/15 TX/PRO/DX INJ NEW DRUG ADDON Completed 12/31/15 CRITICAL CARE FIRST HOUR Completed 12/31/15 899015"INJECTION, HEPARIN SODIUM, PER 1000 UNITS" Completed 12/31/15 [id number]"INJECTION, ONDANSETRON HYDROCHLORIDE, PER 1 MG" Completed 12/31/15 103309"INJECTION, FENTANYL CITRATE, 0.1 MG" Completed 12/31/15 [id number]"INFUSION, NORMAL SALINE SOLUTION , 1000 CC" Completed 12/31/15 Encounters Encounter Location Arrival/Admit Date Discharge/Depart Date Attending Provider Departed Emergency Room [facility] 01/04/16 10:36pm 01/05/16 12: 46am DENNYS BEAR MD Departed Emergency Room [facility] 12/31/15 11:50pm 01/01/16 12: 22am DENNYS BEAR MD Departed Emergency Room [facility] 12/29/15 10:12am 12/29/15 12: 59pm BETHANY ARANDA MD Recent Diagnosis
--- OUTSIDE RECORDS SUMMARY | 2016-08-30 17:44 | XMS REPORT | Referral Summary ---
Author Author [facility] Organization [facility] Address Unknown Phone Unavailable Care Team Providers Care Model Set Artist Name Role Phone [facility] Primary Care Physician Unavailable Encounter [facility] [id number] Date(s): 08/05/16 - 08/07/16 [facility] [address] [place] [address] MD Discharge Disposition: 01-Home or Self Care Attending Physician: Sonu Tinajero MD Admitting Physician: Sonu Tinajero MD Vital Signs Most recent to 1 oldest [Reference Range]: Temperature Oral 36.2 degC [35.8-37.3 degC] (08/07/16 9:08 AM) Temperature Temporal 36.1 degC Artery [36.3-37.8 *LOW* degC] (08/05/16 11:00 AM) Peripheral Pulse 67 bpm Rate [60-100 bpm] (08/07/16 9:08 AM) Heart Rate Monitored 69 bpm [60-100 bpm] (08/05/16 12:45 PM) Respiratory Rate 16 br/min [14-20 br/min] (08/07/16 9:08 AM) Blood Pressure 163/91 mmHg [90-140/60-90 mmHg] *HI* (08/07/16 9:08 AM) Mean Arterial 99 mmHg Pressure, Cuff (08/05/16 12:45 PM) Blood Pressure 141/62 mmHg Invasive *HI* [90-140/60-90 mmHg] (08/05/16 11:15 AM) Mean Arterial 89 mmHg Pressure, Invasive (08/05/16 11:30 AM) SpO2 93 % (08/07/16 9:08 AM) Problem List Condition Effective Dates Status Health Status Informant Other acquired Active deformities of ankle and foot(Confirmed) Acute Active pain(Confirmed) Cardiac Active disorder(Confirmed)1 Chronic pain Active syndrome (disorder)(Confirmed ) Degeneration of Active lumbar or lumbosacral intervertebral disc(Confirmed) Lumbar disc Active displacement without myelopathy(Confirmed ) Impaired skin Active integrity(Confirmed) 2 Knowledge Active deficit(Confirmed)3 Lumbago(Confirmed) Active Lumbosacral Active neuritis(Confirmed) Lumbosacral Active spondylosis without myelopathy(Confirmed ) Esophageal Active patient cancer(Confirmed) DJD of the Active knees(Confirmed) Overweight(Confirmed Active ) Post-laminectomy Active syndrome (disorder)(Confirmed ) Spinal stenosis of Active lumbar region with neurogenic claudication(Confirm ed) 1Problem added automatically by system based on initiation of Cardiac Output/ Ineffective Cardiac Perfusion Plan of Care 2Problem added automatically by system based on initiation of Impaired Skin Integrity Plan of Care 3Problem added automatically by system based on initiation [...] reason (Rx) Start Date: 01/03/16 Status: Ordered morphine 10 mg, Oral, q3hr, as needed for pain, 0 Refill(s) Start Date: 08/05/16 Status: Ordered Nitrostat 0.4 mg sublingual tablet [...] reason (Rx) Start Date: 01/03/16 Status: Ordered ranitidine 150 mg, Oral, BID, 0 Refill(s) Start Date: 08/05/16 Status: Ordered traZODone 100 mg, Oral, Bedtime (once a day), 0 Refill(s) Start Date: 08/05/16 Status: Ordered Zofran 8 mg, Oral, TID, as needed for nausea/vomiting, 0 Refill(s) Start Date: 08/05/16 Status: Ordered Zoloft 25 mg, Oral, Daily, 0 Refill(s) Start Date: 08/05/16 Status: Ordered Results Hematology Most recent to 1 oldest [Reference Range]: WBC [4.8-10.8 6.6 10*3/uL 10*3/uL] (08/06/16 5:52 AM) RBC [4.60-6.20] 3.45 *LOW* (08/06/16 5:52 AM) Hgb [14.0-18.0 9.9 gm/dL gm/dL] *LOW* (08/06/16 5:52 AM) Hct [42.0-52.0 %] 30.5 % *LOW* (08/06/16 5:52 AM) MCV [82.0-99.0 fL] 88.4 fL (08/06/16 5:52 AM) MCH [27.0-32.0 pg] 28.7 pg (08/06/16 5:52 AM) MCHC [32.0-36.0 32.5 gm/dL gm/dL] (08/06/16 5:52 AM) RDW [11.5-14.5 %] 15.4 % *HI* (08/06/16 5:52 AM) Platelet [150-400 187 10*3/uL 10*3/uL] (08/06/16 5:52 AM) MPV [9.4-12.3 fL] 10.1 fL (08/06/16 5:52 AM) Immature 0.3 % Granulocytes (08/06/16 5:52 AM) [0.0-1.0 %] Neutrophils [51-75 75 % %] (08/06/16 5:52 AM) Lymphocytes [20-46 8 % %] *LOW* (08/06/16 5:52 AM) Monocytes [4-11 %] 15 % *HI* (08/06/16 5:52 AM) Eosinophils [0-4 %] 1 % (08/06/16 5:52 AM) Basophils [0-2 %] 0 % (08/06/16 5:52 AM) Neutro Absolute 4.99 [1.90-7.00] (08/06/16 5:52 AM) Lymph Absolute 0.55 [0.80-3.30] *LOW* (08/06/16 5:52 AM) [place] Absolute 1.01 [0.30-1.00] *HI* (08/06/16 5:52 AM) Eos Absolute 0.06 [0.00-0.50] (08/06/16 5:52 AM) Baso Absolute 0.02 [0.00-0.20] (08/06/16 5:52 AM) Nucleated RBC 0.0 /100 WBC Automated [0 /100 (08/06/16 5:52 AM) WBC] Chemistry Most recent to 1 oldest [Reference Range]: Sodium Lvl [136-144 136 mEq/L mEq/L] (08/06/16 5:52 AM) Potassium Lvl 4.4 mEq/L [3.6-5.1 mEq/L] (08/06/16 5:52 AM) Chloride [99-109 104 mEq/L mEq/L] (08/06/16 5:52 AM) CO2 [22-32 mEq/L] 26 mEq/L (08/06/16 5:52 AM) AGAP [3-20] 6 (08/06/16 5:52 AM) BUN [4-20 mg/dL] 13 mg/dL (08/06/16 5:52 AM) Glucose Lvl [70-100 95 mg/dL mg/dL] (08/06/16 5:52 AM) Creatinine Lvl 0.86 mg/dL [0.64-1.27 mg/dL] (08/06/16 5:52 AM) eGFR [>60] >60 1 (08/06/16 5:52 AM) Calcium Lvl 8.4 mg/dL [8.6-10.0 mg/dL] *LOW* (08/06/16 5:52 AM) Albumin Lvl [3.5-4.8 3.9 gm/dL gm/dL] (08/05/16 6:03 AM) Total Protein 7.0 gm/dL [6.1-7.9 gm/dL] (08/05/16 6:03 AM) Globulin [1.9-4.3 3.1 gm/dL gm/dL] (08/05/16 6:03 AM) ALT [17-63 U/L] 20 U/L (08/05/16 6:03 AM) AST [15-41 U/L] 20 U/L (08/05/16 6:03 AM) Alk Phos [26-104 96 U/L U/L] (08/05/16 6:03 AM) Bili Total [0.2-1.2 1.0 mg/dL 2 mg/dL] (08/05/16 6:03 AM) Magnesium Lvl 1.7 mg/dL [1.8-2.5 mg/dL] *LOW* (08/06/16 5:52 AM) Phosphorus [2.4-4.7 4.8 mg/dL 3 mg/dL] *HI* (08/06/16 5:52 AM) Blood Glucose, 82 mg/dL Capillary [70-100 (08/06/16 12:59 PM) mg/dL] 1Result Comment: Multiply eGFR results by 1.21 for race. 2Result Comment: Naproxen, specifically the metabolite O-desmethylnaproxen, may cause spurious elevation in Total Bilirubin levels. 3Result Comment: High dosages of liposomal Amphotericin B (AmBisome) therapy or other drug preparations that use a liposomal envelope to facilitate drug delivery may cause falsely elevated results for phosphorus. Blood Bank Results Most recent to 1 oldest [Reference Range]: ABO/Rh O POS (08/05/16 6:03 AM) Antibody Screen Tube NEG (08/05/16 6:03 AM) Immunizations No data available for this section Procedures Procedure Date Related Diagnosis Body Site Esophagectomy1 08/05/16 Angioplasty or Stent Percutaneous 01/01/16 Transluminal Coronary2 Cardioversion3 01/01/16 Catheterization Left Heart with Coronary 01/01/16 Angiography (Right, Groin)4 Spinal cord stimulator implantation 03/04/05 Arthroscopies both knees Back surgery x 3 L4-5 L5-S1 1auto-populated from documented surgical case 2auto-populated from documented surgical case 3auto-populated from documented surgical case 4auto-populated from documented surgical case Social History Social History Type Response Smoking Status Current every day smoker; Type: Cigarettes; Tobacco use per day: 1 Pack; Number of years: 351 1quit smoking 03/31/16. Assessment and Plan No data available for this section
[2016-08-30] MEDS ORDERED: LIDOCAINE JELLY 2% 20ml UROJET MM ONE (18:00)
--- NOTE | 2016-08-30 18:04 | ERPDOC ---
Departure Disposition Decision Date: Aug 30, 2016 Disposition Decision Time: 18:32 Disposition: 01 DISCHARGED HOME, SELF-CARE Impression Impression Impression: Primary Impression: Urinary retention Severity: Moderate Condition: Improved Seen By: Physician only Referrals: Chey ROCK MD (Family) Patient Instructions: Melo Catheter Placement and Care (ED), Urinary Retention in Men (ED) Problems/Meds/Labs Reviewed?: Yes Medications reviewed and manag: Yes Additional Instructions: Continue all your current medications, see your oncologist next week for recheck Follow up care ordered?: Yes Mental Status: Alert, Oriented HPI - Male General Chief Complaint: Male Urogenital Problems Stated Complaint: UNABLE TO URINATE Time Seen by Provider: 17:57 Source: patient Exam Limitations: no limitations HPI - Male Initial Comments Pt began a new chemo drug this week and is experiencing severe urinary retention. Yesterday pt had straight cath with 700+cc out. Today still unable to urinate. Desires melo catheter placement. Pt has no fever, chills, aches or abd complaint other than fullness suprapubically with bladder distention. Occurred At: home Onset: Gradual Radiation: suprapubic Activities at Onset: none Associated Symptoms: DENIES: abdominal pain, diaphoresis, dysuria, fever/chills , loss of bladder control, lower back pain, lumps, mass, nausea/vomiting, nocturia, polyuria, swelling, syncope, urinary frequency Hx of Similar Symptoms: Yes Allergies: Coded Allergies: cephalexin (Verified Allergy, Unknown, 08/30/16) Past History Patient Medical History Problem List Updates: Esophageal cancer Past Medical History Metabolic: cancer Cardiac: CAD, ND GI: GERD Musculoskeletal: back pain Surgical History General: back Cardiac: cardiac cath, cardiac stent Social History Smoking Status: Never smoker Does patient use chewing tobac: No Second Hand Exposure: No Substance Use Type: does not use Alcohol Intake: none Sexuality: female partner Review of Systems Constitutional Constitutional: DENIES: anorexia, appetite decrease, appetite increase, dizziness, fatigue, night sweats, syncope, weakness ENMT Ears: DENIES: pain Hearing: DENIES: hearing loss, tinnitus Balance: DENIES: vertigo Mouth/Throat: DENIES: change in swallowing, change in voice, hoarsness, painful swallowing, sore throat Cardiovascular Cardiac: DENIES: chest pain, dyspnea on exertion Rhythm/Rate: DENIES: irregular beat, palpitations, tachycardia Vascular: DENIES: pedal edema Pulmonary Respiratory: DENIES: cough, dyspnea, pleuritic chest pain GI Upper Abdomen: DENIES: dysphagia, heartburn/indigestion, nausea, pain, vomiting Lower Abdomen: DENIES: blood in stool, constipation, diarrhea, pain General: DENIES: burning, dysuria, frequency, pain, urgency Male: retention Musculoskeletal General: DENIES: cramps, joint pain, joint swelling, pain, weakness Integumentary Skin: DENIES: rash, sores Neurological General: DENIES: headache, numbness, tingling, vertigo, weakness Physical Exam General General Nourishment: well nourished, well developed, appears stated age, no acute distress General Body Habitus: well groomed Vitals and Pain First Documented Vital Signs Date Time Temp Pulse Resp B/P Pulse Ox O2 Delivery O2 Flow Rate FiO2 08/30/16 17:38 98.1 77 16 155/91 98 Room Air Weight: Kilograms: 69.000 Height (feet): 5 Height (inches): 8.00 Triage Pain Scale: RN VS reviewed by Provider: Yes Normal Exams: Head: Normocephalic w/o trauma Eyes: Pupils are PERRLA w/ EOMI, No scleral icterus, irritation, or foreign bodies noted ENMT: No facial trauma, nasal exudates, pharyngeal erythema, or exudates are noted Neck: Full range of motion, without adenopathy, JVD, bruits or thyromegaly Chest/Resp: Clear all colmenares, with good airflow, and symmetry bilaterally CV: Regular rate and rhythm, without murmur or gallop, Pulses 2+ all extremities, capillary refill, <2 seconds all ext., no pedal edema noted Lymphatic: No lymphadenopathy, or lymphedema noted Musculoskeletal: No tenderness, or deformity noted, good range of motion, all extremities Integumentary: No rashes, hives, or bruising noted, hair and nails, without abnormality Neurologic: Patient is alert, and oriented, cranial nerves, motor/sensory/ cerebellar, exams w/o gross deficits, to observation Psychiatric: Patient exhibits, appropriate attention, emotion and affect Abdomen (brief) Abdominal Brief: FOUND: bowel normo active x4, distended (suprapubic distention with discomfort on palpation), soft, NOT FOUND: hepatosplenomegaly, pulsatile mass, tender Comments Bladder scanner shows greater than 650 cc in the bladder Progress Results/Orders Orders Procedure Category Date Status Time Melo (Ed) EDM 08/30/16 Transmitted 17:58 UA, LAB 08/30/16 In Process Dip&Micro(Complete) & 17:58 Bladder Scanner (Ed) EDM 08/30/16 Transmitted 17:58 Lidocaine Urojet PHA 08/30/16 Complete (Urojet) 18:00 Lab Results Laboratory Tests Test 08/30/16 18:17 Urine Collection Type Cleancatch-midstream Urine Color Yellow Urine Turbidity Clear Urine pH 6.0 Urine Specific [place] 1.020 Urine Protein Trace Urine Glucose (UA) Negative Urine Ketones Negative Urine Blood Negative Urine Nitrite Negative Urine Bilirubin Negative Urine Urobilinogen 0.2EU/DL Urine Leukocyte Esterase Negative Urine RBC Pending Urine WBC Pending Urine Bacteria Pending Medications Current ED Medications Lidocaine HCl (Urojet) 20 ml O ONCE MM Last administered on 08/30/16t 18:18; Start 08/30/16 at 18:00; Stop 08/30/16 at 18:01; Status DC Progress Progress Melo catheter placed using Urojet - placed without difficulty, greater than 600 cc urine output UA - normal DENNYS BEAR MD Aug 30, 2016 18:04
[2016-08-30 18:24] LABS: BLOOD, URINE NEGATIVE (NEGATIVE); COLOR,URINE YELLOW (YELLOW); LEUKOCYTE ESTERASE ,URINE NEGATIVE (NEGATIVE); NITRITE,URINE NEGATIVE (NEGATIVE); UROBILINOGEN,URINE 0.2 EU/DL (NORMAL)
[2016-08-30] MEDS ORDERED: ACET650S14 RECTALLY (18:36)
[2016-08-30] MEDS ORDERED: ONDA-56 PO (18:36)
[2016-08-30] MEDS ORDERED: NUTR250L58 PEG (18:36)
--- NOTE | 2016-08-30 18:36 | NUR ---
CHRISTENSEN DRAINAGE BAG PT'S CHRISTENSEN DRAINAGE BAG EMPTIED OF APPROXIMATELY 500ML CLEAR, NNEKA URINE. PT'S DRAINAGE BAG CHANGED OUT FOR LEG BAG. PT GIVEN INSTRUCTIONS ON CHRISTENSEN MANAGEMENT AND ASEPTIC BAG CHANGES; PT VERBALIZES UNDERSTANDING.
[2016-08-30] MEDS ORDERED: PROC10TA PO (18:38)
[2016-08-30] MEDS ORDERED: PROM25SU59 PO (18:38)
[2016-08-30] MEDS ORDERED: POLY119P3 PO (18:38)
[2016-08-30] MEDS ORDERED: TRAZ-173 PO (18:41)
[2016-08-30] MEDS ORDERED: RANI15SY PO (18:41)
[2016-08-30] MEDS ORDERED: SERT20OR5 PEG (18:41)
[2016-08-30] MEDS ORDERED: NITR0.4T SL (18:44)
[2016-08-30] MEDS ORDERED: MORP10SO PO (18:44)
[2016-08-30] MEDS ORDERED: LOPE2TAB24 PO (18:44)
[2016-08-30] MEDS ORDERED: LACT-73 PO (18:44)
[2016-08-30 18:45] LABS: BACTERIA,URINE TRACE (NEGATIVE); MUCUS,URINE PRESENT; RBC,URINE 0-1 /HPF (0-3); SQUAMOUS EPITHELIAL CELL,UR 0-5
[2016-08-30] MEDS ORDERED: [UNRECOGNIZED DRUG - CODE] PO (18:45)
[2016-08-30] MEDS ORDERED: magic mouthwash SSP (18:47)
--- NOTE | 2016-08-30 18:50 | NUR ---
DEPARTURE PT COLLECTED BELONGINGS AND AMBULATED INDEPENDENTLY TO EXIT, GAIT STEADY.
== END 2016-08-30 18:50 | disposition home or self-care (01) ==
LOC: ED 17:37
DX: R33.9 Retention of urine, unspecified (principal)
CPT/HCPCS: 51702; 81001